=== PATIENT | female | born 1965 | race Caucasian/White ===

== ENCOUNTER 2017-08-13 09:55 | Emergency (ER) | payer BC ==
[2017-08-13 10:07] VITALS: BP 120/96
--- NOTE | 2017-08-13 10:09 | ER Document Report ---
HPI - HPI Patient complains to provider of: chronic left shoulder pain Onset: Yesterday Onset/Duration: Sudden Pain Level: 5 Context: 52 yo female with months hx of left shoulder pain with reduce ROM. tried to exercise to loosen the joint and felt/heard pop when trying to abduct it over hear -was unable to go any farther ahtn 90 degrees. Associated Symptoms: None Exacerbated by: Movement Relieved by: Denies Similar symptoms previously: Yes Recently seen / treated by doctor: No - ROS ROS below otherwise negative: Yes Systems Reviewed and Negative: Yes All other systems reviewed and negative - REPRODUCTIVE Reproductive: DENIES: : Past Medical History - General Information source: Patient - Social History Smoking Status: Unknown if Ever Smoked Lives with: Spouse/Significant other Family History: Reviewed & Not Pertinent - Past Medical History Cardiac Medical History: Reports: Hx Hypercholesterolemia, Hx Hypertension - MEDICATED GI Medical History: Reports: Hx Gastroesophageal Reflux Disease, Hx Ulcer - STOMACH Musculoskeltal Medical History: Reports Hx Arthritis - all joint/knees/ankles Past Surgical History: Reports: Hx Section - x 1, Hx Cholecystectomy, Hx Hysterectomy - Immunizations Hx Diphtheria, Pertussis, Tetanus Vaccination: No Vertical Provider Document - CONSTITUTIONAL Agree With Documented VS: Yes Exam Limitations: No Limitations General Appearance: No Apparent Distress - INFECTION CONTROL TRAVEL OUTSIDE OF THE [place] IN LAST 30 DAYS: No - HEENT HEENT: Normocephalic - MUSCULOSKELETAL/EXTREMETIES Musculoskeletal/Extremeties: Tender - left shoulder joint, limited abductionk extension, rotation due to pain and most likely frozen shoulder - NEURO Level of Consciousness: Awake Motor/Sensory: No Motor Deficit, No Sensory Deficit - DERM Integumentary: No Rash Course - Re-evaluation Re-evalutation: 08/13/17 deg changes in left shoulder joint with loose bodies - Vital Signs Vital signs: Temp Pulse Resp BP Pulse Ox 98.2 F 22 H 120/96 H 08/13/17 10:03 08/13/17 10:03 08/13/17 10:03 Discharge - Discharge Clinical Impression: Left shoulder pain DJD of left shoulder Qualifiers: Osteoarthritis type: primary Qualified Code(s): M19.012 - Primary osteoarthritis, left shoulder Condition: Good Disposition: HOME, SELF-CARE Instructions: Arthritis ([facility]), Muscle Relaxers ([facility]), Oral Narcotic Medication ([facility]), Pain Medication Injection ([facility]), Sling as Treatment ([facility]) Additional Instructions: warm compress sling Schedule appointment with orthopedic for left shoulder evaluation Return to the emergency room any concerns Flexeril for muscle spasms Oxycodone for pain Continue the irlz-mme-[id number] Aleve for inflammation Prescriptions: Cyclobenzaprine HCl [Flexeril 10 Mg Tablet] 10 mg PO TIDP PRN #20 tablet PRN Reason: Oxycodone HCl/Acetaminophen [Percocet 5-325 mg Tablet] 1 - 2 tab PO ASDIR PRN # 15 tablet PRN Reason: Referrals: MARLENI DOWNING MD [ACTIVE STAFF] - Follow up as needed
[2017-08-13] MEDS ORDERED: MORPHINE SULFATE 10 MG/ML INJ IM ONE (10:37)
[2017-08-13] MEDS ORDERED: ONDANSETRON 4 MG TAB.RAPDIS PO ONE (10:37)
--- NOTE | 2017-08-13 10:55 | RADIOLOGY REPORT (SQ) ---
EXAM DESCRIPTION: SHOULDER LEFT 2 OR MORE VIEWS COMPLETED DATE/TIME: 08/13/2017 10:18 am REASON FOR STUDY: injury/pain COMPARISON: None. NUMBER OF VIEWS: Three views left shoulder. LIMITATIONS: None. FINDINGS: Normal bone density. Glenohumeral degenerative spurring with loose bodies in the joint. AC joint intact. No fracture or bone lesion. Left lung clear as visualized. OTHER: No other significant finding. IMPRESSION: Glenohumeral DJD. Associated loose bodies in the joint. TECHNICAL DOCUMENTATION: JOB ID: [id number] Reading location - IP/workstation name: [email or web address]
== END 2017-08-13 11:14 | disposition home or self-care (01) ==
LOC: ER 09:55
DX: M19.012 Primary osteoarthritis, left shoulder (principal); M24.012 Loose body in left shoulder; I10 Essential (primary) hypertension
CPT/HCPCS: 99283; 96372; 73030; S0119; J2270